=== PATIENT | female | born 1980 | race African-American/Black ===

== ENCOUNTER 2018-01-16 16:14 | Emergency (ER) | payer OTHER ==
[2018-01-16] MEDS ORDERED: TDAP ADULT 0.5 ML INJ (BOOSTRIX) IM ONE (16:41)
--- NOTE | 2018-01-16 17:00 | EDPHY ---
H & P Time Seen by Provider: 01/16/18 16:21 HPI/ROS: CHIEF COMPLAINT: Finger laceration HISTORY OF PRESENT ILLNESS: 37-year-old female presents to the emergency department with laceration to the left middle finger. The incident happened at work just prior to arrival. She is right-hand dominant. Denies any other trauma or injury. She is unsure of her last tetanus shot. ROS: Denies numbness or tingling in her fingers, retained foreign body or other injuries. Past Medical/Surgical History: Tubal ligation Social History: Smoking Status: Never smoked Physical Exam: On examination the patient has a 2 cm laceration to the distal, palmar aspect of the left middle finger. The laceration does not extend into the nail or into the D IP joint. The other fingers do not appear injured. No palpable bony tenderness. Normal sensation to light touch with normal 2 point discrimination. Strong radial pulse at the left wrist. Constitutional: Initial Vital Signs Temperature (C) 36.7 C 01/16/18 16:23 Heart Rate 80 01/16/18 16:23 Respiratory Rate 16 01/16/18 16:23 Blood Pressure 135/78 H 01/16/18 16:23 O2 Sat (%) 99 01/16/18 16:23 O2 Delivery Mode Room Air Allergies/Adverse Reactions: No Known Allergies Allergy (Unverified 01/16/18 16:23) Home Medications: Medication Instructions Recorded NK [No Known Home Meds] 01/16/18 MDM/Departure - MDM Procedures: Laceration repair. Verbal consent was obtained from the patient. The 2 cm laceration on the left middle finger was anesthetized using digital block using 1% lidocaine without epinephrine 0.5% bupivacaine without epinephrine. The wound was irrigated with saline, draped and explored to its base with a gloved finger. There were no deep structures involved. No tendon injury was identified. The wound was repaired with 5 0 Ethilon, 3 sutures. The wound repair was simple. The procedure was performed by myself. Medications Given: Discontinued Medications Diphtheria/Tetanus/Acell Pertussis (Boostrix) 0.5 ml IM .ONCE ONE Stop: 01/16/18 16:42 Last Admin: 01/16/18 16:50 Dose: 0.5 ml ED Course/Re-evaluation: 37-year-old female presents to the emergency department left middle finger laceration. See procedure note. Her tetanus shot was updated. She was given wound care precautions. - Depart Disposition: Home, Routine, Self-Care Clinical Impression: Laceration of left middle finger Qualifiers: Encounter type: initial encounter Damage to nail status: without damage Foreign body presence: without foreign body Qualified Code(s): S61.213A - Laceration without foreign body of left middle finger without damage to nail, initial encounter Condition: Good Instructions: Laceration (ED), Care For Your Stitches (ED), Acute Wounds (ED) Additional Instructions: Wound Care Follow-Up: Removal of sutures in 10 days. Suture removal is complimentary in uncomplicated cases. Infection or abnormal findings would require reevaluation by the MD. In that case, you may be billed. Return if he notices any signs or symptoms of infection such as redness, swelling, increased pain, fever, purulent drainage. Referrals: NONE *PRIMARY CARE P,. [Primary Care Provider] - As per Instructions
[2018-01-16 17:30] VITALS: BP 118/84
== END 2018-01-16 17:26 | disposition home or self-care (01) ==
LOC: EDSEX 16:14
PROC: 0HQGXZZ Repair Left Hand Skin, External Approach (ICD-10-PCS; principal; 2018-01-16)
DX: S61.213A Laceration without foreign body of left middle finger without damage to nail, initial encounter (principal); Z23 Encounter for immunization; X58.XXXA Exposure to other specified factors, initial encounter; Y99.8 Other external cause status; Y93.89 Activity, other specified